=== PATIENT | male | born 1955 | race Caucasian/White ===

== ENCOUNTER 2022-07-14 13:27 | Emergency (ER) | payer OTHER ==
[~2022-07-14] VITALS: Ht 170.2 cm; Wt 75.7 kg
[~2022-07-14 13:27] MED LIST: AVALIDE 150-12.1 TA1 PO
[2022-07-14] MEDS ORDERED: ZESTRIL10 M1 (14:06)
== END 2022-07-14 19:17 | disposition home or self-care (01) ==
LOC: ER 13:27
DX: S91.331A Puncture wound without foreign body, right foot, initial encounter (principal); W45.0XXA Nail entering through skin, initial encounter; Y93.9 Activity, unspecified; Y92.9 Unspecified place or not applicable